=== PATIENT | female | born 1995 | race Two or more races ===

== ENCOUNTER 2022-08-12 15:05 | Emergency (ER) | payer OTHER ==
[~2022-08-12] VITALS: Ht 162.6 cm; Wt 91.0 kg
[2022-08-12 16:25] VITALS: BP 130/80
[2022-08-15 09:27] LABS: Hepatitis B Surface Antibody Positive (Negative)
== END 2022-08-12 17:09 | disposition home or self-care (01) ==
LOC: ER 15:05
DX: S61.230A Puncture wound without foreign body of right index finger without damage to nail, initial encounter (principal); Z20.5 Contact with and (suspected) exposure to viral hepatitis; W46.0XXA Contact with hypodermic needle, initial encounter; Y93.89 Activity, other specified; Y92.69 Other specified industrial and construction area as the place of occurrence of the external cause; Y99.8 Other external cause status
CPT/HCPCS: 36415; 86703; 86706; 86803; 87340

== ENCOUNTER 2022-10-01 19:08 | Emergency (ER) | payer MEDICAID, OTHER ==
[~2022-10-01] VITALS: Ht 162.6 cm; Wt 108.3 kg
[2022-10-01 20:00] LABS: Basophils # (auto) 0.1 10 ^3/uL (0-0.2); Basophils % (auto) 0.8 % (0.0-2.0); Eosinophils # (auto) 0.4 10 ^3/uL (0-0.8); Eosinophils % (auto) 4.2 % (0.0-7.0); Hematocrit 40.2 % (36.0-46.0); Hemoglobin 13.9 g/dL (12.2-16.2); Lymphocytes # (auto) 3.5 10 ^3/uL (0.4-5.4); Lymphocytes % (auto) 34.8 % (10.0-50.0); Mean Corpuscular Hemoglobin 30.3 pg (28.0-32.0); Mean Corpuscular Hgb Conc. 34.6 g/dL (32.0-36.0); Mean Corpuscular Volume 87.5 fL (80.0-100.0); Monocytes # (auto) 0.6 10 ^3/uL (0-1.3); Monocytes % (auto) 6.2 % (0.0-12.0); Neutrophils # (auto) 5.4 10 ^3/uL (1.6-8.6); Nucleated Red Blood Cells % 0.2 %; Red Cell Distribution Width 13.5 % (11.8-14.3)
[2022-10-01 20:01] LABS: Urine Bacteria NONE SEEN /hpf (None Seen); Urine Blood Negative /uL (Negative); Urine Mucus FEW (None Seen); Urine Specific Gravity 1.027 (1.001-1.035); Urine WBC 12 /hpf (0 - 5)
[2022-10-01 20:22] LABS: Albumin 3.7 g/dL (3.4-5.0); Potassium 3.4 mmol/L (3.5-5.1)
[2022-10-01 20:26] LABS: BUN/Creatinine Ratio 9.1 (10.0-20.0); Bilirubin, Total 0.3 mg/dL (0.2-1.0); Total Protein 7.7 g/dL (6.4-8.2)
[2022-10-01] MEDS ORDERED: ONDANSETRON HCL 4 MG/2 ML VIAL IV ONE (21:45)
[2022-10-01] MEDS ORDERED: SODIUM CHLORIDE 0.9% 1,000 ML IV ONE (21:45)
[2022-10-01] MEDS ORDERED: FAMOTIDINE (10MG/ML) 2ML VL IV ONE (21:45)
[2022-10-02] MEDS ORDERED: ONDA-144 PO (00:10)
[2022-10-02] MEDS ORDERED: MECL1TAB42 PO (00:10)
[2022-10-02] MEDS ORDERED: FAMO20TA10 PO (00:10)
[2022-10-02] MEDS ORDERED: NITR-87 PO (00:10)
[2022-10-02 00:20] VITALS: BP 120/73
== END 2022-10-02 00:23 | disposition home or self-care (01) ==
LOC: EEVIPCON 19:08 → ER 19:08
DX: N39.0 Urinary tract infection, site not specified (principal); K29.70 Gastritis, unspecified, without bleeding; K76.0 Fatty (change of) liver, not elsewhere classified
CPT/HCPCS: 36415; 70450; 76705; 80053; 81001; 81025; 83690; 84484; 85025; 93005; 96361; 96374; 96375; 99285; J2405; J3490; J7030

== ENCOUNTER 2022-12-17 11:02 | Emergency (ER) | payer MEDICAID ==
[~2022-12-17] VITALS: Ht 162.6 cm; Wt 104.5 kg
[~2022-12-17 11:02] MED LIST: FAMO20TA10 PO; MECL1TAB42 PO; NITR-87 PO; ONDA-144 PO
[2022-12-17] MEDS ORDERED: cefTRIAXone SOD 1,000 MG VL IM ONE (12:00)
[2022-12-17] MEDS ORDERED: IBUPROFEN 800 MG TAB PO ONE (12:00)
[2022-12-17] MEDS ORDERED: CEPH500C PO (12:21)
[2022-12-17] MEDS ORDERED: IBUP-1456 PO (12:21)
[2022-12-17 12:32] VITALS: O2SAT 97
[2022-12-17 12:34] VITALS: BP 121/83; PULSE 78; RESP 18; O2SAT 95
== END 2022-12-17 12:35 | disposition home or self-care (01) ==
LOC: ER 11:02
DX: S60.429A Blister (nonthermal) of unspecified finger, initial encounter (principal); L30.1 Dyshidrosis [pompholyx]; Z79.899 Other long term (current) drug therapy; X58.XXXA Exposure to other specified factors, initial encounter; Y93.89 Activity, other specified; Y92.89 Other specified places as the place of occurrence of the external cause; Y99.8 Other external cause status
CPT/HCPCS: 96372; 99283; J0696